=== PATIENT | male | born 1975 | race African-American/Black ===

== ENCOUNTER 2018-12-26 17:20 | Emergency (ER) | payer OTHER ==
[~2018-12-26] VITALS: Ht 180.3 cm; Wt 131.3 kg
[2018-12-26 17:25] VITALS: Ht 180.3 cm; Wt 131.3 kg
--- NOTE | 2018-12-26 19:46 | ERD ---
ER Documentation Chief Complaint Chief Complaint high BP; frequent urination sent by MD at [facility] facility HPI 43-year-old man with a history of hypertension currently on amlodipine therapy here for "medical clearance" from drug detoxification facility, as requested by his facility physician. He has had increased urinary frequency over the last few days and denies history of diabetes mellitus, he states he has been using his amlodipine as prescribed but denies other medications or diuretics. He denies dysuria, no penile discharge, no fevers or chills, no back pain, no chest pain or shortness of breath. He has been urinating about once per hour for most of the day but states he is also been drinking lots of powerade. ROS All systems reviewed and are negative except as per history of present illness. Medications Home Meds Active Scripts Metformin* (Glucophage*) 500 Mg Tab, 500 MG PO BID, #60 TAB Prov:JACOB DAMICO MD 12/26/18 Allergies Allergies: Coded Allergies: No Known Allergy (Unverified , 12/26/18) PMhx/Soc Hypertension, obesity History of Surgery: No Anesthesia Reaction: No Hx Neurological Disorder: No Hx Respiratory Disorders: No Hx Cardiac Disorders: Yes Hx Psychiatric Problems: No Hx Miscellaneous Medical Probl: No Hx Alcohol Use: No Hx Substance Use: No Hx Tobacco Use: No Smoking Status: Unknown if ever smoked FmHx Family History: No diabetes Physical Exam Vitals Vital Signs Date Temp Pulse Resp B/P (MAP) Pulse Ox O2 O2 Flow FiO2 Time Delivery Rate 12/26/18 94 20 135/91 98 Room Air 22:14 (106) 12/26/18 98.8 111 20 178/81 98 17:25 (113) Physical Exam GENERAL: Well-developed, well-nourished, well-hydrated, in no apparent distress, looks nontoxic in appearance CARDIAC: Regular rate and rhythm, no murmurs rubs or gallops LUNGS: Clear bilaterally no wheezing crackles or stridor ABDOMEN: Soft nontender, no guarding, no rigidity, no rebound, no psoas sign no obturator sign. Normoactive bowel sounds SKIN: Warm and dry to touch, no abrasions, contusions, or hematomas, no lacerations, no ecchymosis, no target lesions, and without ulcers EXTREMITIES: No clubbing cyanosis or edema, calves are bilaterally symmetrical, no Homans sign, no popliteal cord sign. Distal pulses equal and bilateral PSYCH: Normal affect without agitation or irritability Result Diagram: 12/26/18192512/26/181925 Results 24 hrs Laboratory Tests Test 12/26/18 19:26 12/26/18 20:25 12/26/18 21:53 White Blood Count 4.0 10^3/ul Red Blood Count 4.82 10^6/ul Hemoglobin 14.2 g/dl Hematocrit 42.3 % Mean Corpuscular Volume 87.8 fl Mean Corpuscular Hemoglobin 29.5 pg Mean Corpuscular 33.6 g/dl Hemoglobin Concent Red Cell Distribution Width 13.2 % Platelet Count 237 10^3/UL Mean Platelet Volume 9.9 fl Immature Granulocytes % 0.200 % Neutrophils % % Lymphocytes % % Monocytes % % Eosinophils % % Basophils % % Nucleated Red Blood Cells % 0.0 /100WBC Immature Granulocytes # 0.010 10^3/ul Neutrophils # 10^3/ul Lymphocytes # 10^3/ul Monocytes # 10^3/ul Eosinophils # 10^3/ul Basophils # 10^3/ul Nucleated Red Blood Cells # 10^3/ul Urine Color STRAW Urine Clarity CLEAR Urine pH 6.0 Urine Specific [place] 1.023 Urine Ketones NEGATIVE mg/dL Urine Nitrite NEGATIVE mg/dL Urine Bilirubin NEGATIVE mg/dL Urine Urobilinogen NEGATIVE mg/dL Urine Leukocyte Esterase NEGATIVE Gwendolyn/ul Urine Hemoglobin NEGATIVE mg/dL Urine Glucose 3+ mg/dL Urine Total Protein NEGATIVE mg/dl Sodium Level 138 mmol/L Potassium Level 4.5 mmol/L Chloride Level 98 mmol/L Carbon Dioxide Level 29 mmol/L Anion Gap 11 Blood Urea Nitrogen 11 mg/dl Creatinine 0.68 mg/dl Est Glomerular Filtrat > 60 mL/min Rate mL/min Glucose Level 462 mg/dl Calcium Level 9.9 mg/dl Total Bilirubin 0.0 mg/dl Direct Bilirubin 0.00 mg/dl Indirect Bilirubin 0.0 mg/dl Aspartate Amino Transf (AST/SGOT) 42 IU/L Alanine 40 IU/L Aminotransferase (ALT/SGPT) Alkaline Phosphatase 83 IU/L Total Protein 8.9 g/dl Albumin 4.3 g/dl Globulin 4.60 g/dl Albumin/Globulin Ratio 0.93 Lipase 139 U/L Bedside Glucose 413 mg/dL 339 mg/dL Current Medications Medications Dose Sig/Sreedhar Start Time Status Last (Trade) Ordered Route PRN Stop Time Admin Dose Reason Admin Metformin 500 mg ONCE ONCE 12/26/18 DC 12/26/18 HCl PO 20:30 20:27 (Glucophage) 12/26/18 20:31 Insulin 14 unit ONCE ONCE 12/26/18 DC 12/26/18 Human SC 20:30 20:28 Lispro 12/26/18 20:31 (Humalog) Diagnostic 1 ea 2 HRS AFTER 12/26/18 DC 12/26/18 Test (Pha) HUMALOG ONCE 20:30 20:30 (Accu-Chek) XX 12/26/18 20:31 Sodium 500 ml @ Q1H STAT 12/26/18 DC 12/26/18 Chloride 500 mls/hr IV 20:29 21:04 12/26/18 21:28 Insulin 12 unit ONCE ONCE 12/26/18 DC 12/26/18 Human SC 21:30 21:59 Lispro 12/26/18 21:31 (Humalog) Procedures/MDM CBC was within normal limits, electrolytes revealed hyperglycemia 462, urine analysis positive for glucosuria IV line was established I administered 500 cc normal saline IV and lispro subcutaneous insulin 14 units x1 followed by another 12 units subcu dose Blood sugar fell. Patient has no signs or laboratory evidence of DKA and will be managed as an outpatient. Differential diagnoses considered, included but not limited to acute coronary syndrome, pulmonary embolism, aortic dissection, abdominal aortic aneurysm, sepsis, stroke, meningitis, encephalitis, pneumonia, appendicitis, cholecystitis, bowel obstruction, pyelonephritis, nephrolithiasis, cystitis, as well as metabolic, hematologic, and electrolyte abnormalities. As well as abscess, cellulitis, fractures, and dislocations. Patient feels much better at this time, and vital signs are normal, symptoms have improved. I did give strict instructions to return to the ED if symptoms continue or worsen, patient will otherwise follow-up with primary care physician. Patient understood instructions and agreed to plan. Disclaimer: Inadvertent spelling and grammatical errors are likely due to EHR/dictation software use and do not reflect on the overall quality of patient care. Also, please note that the electronic time recorded on this note does not necessarily reflect the actual time of the patient encounter. Departure Diagnosis: Primary Impression: Hypertension Hypertension type: essential hypertension Qualified Codes: I10 - Essential (primary) hypertension Additional Impression: New onset type 2 diabetes mellitus Condition: JACOB Neal MD Dec 26, 2018 19:46
[2018-12-26] MEDS ORDERED: SOD CHLORIDE 0.9% 500 ML IV STA (20:29)
[2018-12-26] MEDS ORDERED: metFORMIN 500 MG TAB PO ONE (20:30)
[2018-12-26] MEDS ORDERED: ACCU-CHEK XX ONE (20:30)
[2018-12-26] MEDS ORDERED: INSULIN LISPRO 100 UNIT/ML VIAL SC ONE ×2 (20:30→21:30)
[2018-12-26 22:14] VITALS: BP 135/91; PULSE 94; RESP 20
[2018-12-26] MEDS ORDERED: METF-849 PO (22:20)
== END 2018-12-26 22:39 | disposition home or self-care (01) ==
LOC: FTE 17:20
DX: I10 Essential (primary) hypertension (principal); E11.9 Type 2 diabetes mellitus without complications
CPT/HCPCS: 36415; 80053; 81003; 82962; 83690; 85025; 96360; 96361; 96372; 99284; J1815; J7040